=== PATIENT | female | born 1980 | race Caucasian/White ===

== ENCOUNTER 2018-04-19 20:31 | Emergency (ER) | payer OTHER, MEDICAID ==
[~2018-04-19] VITALS: Ht 160 cm; Wt 68.0 kg
[~2018-04-19 20:31] MED LIST: CELEXA40 MG PO; NORCO 5-325 TA1 EACH PO; PREDNISONE 20 M20 M1 PO; ROBAXIN500 MG PO
[2018-04-19] MEDS ORDERED: TRAMADOL 50 MG50 MG PO (23:01)
[2018-04-19 23:16] VITALS: BP 119/80
== END 2018-04-19 23:17 | disposition home or self-care (01) ==
LOC: M.ERS 20:31
DX: S22.32XA Fracture of one rib, left side, initial encounter for closed fracture (principal); F32.9 Major depressive disorder, single episode, unspecified; Z88.2 Allergy status to sulfonamides; W18.39XA Other fall on same level, initial encounter; Y93.89 Activity, other specified; Y92.89 Other specified places as the place of occurrence of the external cause; Y99.8 Other external cause status